=== PATIENT | male | born 1945 | race Caucasian/White ===

== ENCOUNTER 2021-05-09 00:09 | Day surgery (SDC) | payer OTHER, SELFPAY ==
[2021-04-30 13:55] VITALS: BMI 34.8
[2021-05-09 06:26] VITALS: BP 145/88; PULSE 66; RESP 18; TEMP 36.6; O2SAT 97; BMI 35.2
[2021-05-09] MEDS: LACTATED RINGERS 1,000 ML 150 ML IV CONT (06:38)
[2021-05-09 07:01] LABS: Glucose Point of Care 109 mg/dl (65-105)
--- NOTE | 2021-05-09 07:12 | WPDANESEPPF ---
Anes - Initial Pre Proc Eval Procedure: Operation Date: 05/09/21 07:30 Proposed Procedures p Screening Colonoscopy - Todd Jordan MD Date/Time: 05/09/21 07:12 Surgeon: Todd Jordan MD Pre Op Diagnosis: hx of colon polyps Patient Data Age: 76 Gender: M Height: 1.88 m Weight: 124.4 kg Last Vital Signs Temp 97.8 F 05/09/21 06:26 Pulse 66 05/09/21 06:26 Resp 18 05/09/21 06:26 BP 145/88 H 05/09/21 06:26 Pulse Ox 97 05/09/21 06:26 Allergies Allergy/AdvReac Type Severity Reaction Status Date / Time No Known Allergies Allergy Verified 05/09/21 06:24 Home Medications Medication Instructions Recorded Confirmed Type aspirin 325 mg tablet 325 mg PO DAILY 12/04/20 04/30/21 History carvedilol 12.5 mg tablet 12.5 mg PO Q12H 12/04/20 04/30/21 History furosemide 20 mg tablet 30 mg PO BID tablet 12/04/20 04/30/21 History amlodipine 10 mg tablet 10 mg PO DAILY #90 tablet 01/04/21 04/30/21 Rx metformin 1,000 mg tablet 1,000 mg PO DAILY #90 tablet 02/22/21 04/30/21 Rx allopurinol PO DAILY 04/30/21 History atorvastatin 80 mg PO DAILY 04/30/21 04/30/21 History donepezil [Aricept] 10 mg PO .at bedtime 04/30/21 04/30/21 History losartan [Cozaar] 100 mg PO DAILY 04/30/21 04/30/21 History Laboratory Tests 05/09/21 06:59 POC Capillary Glucose 109 mg/dl H mg/dl (65-105) Patient hx anesthesia problems: none Family hx anesthesia problems: none PMFSH Past Medical History Medical History Influenza vaccine administered Influenza vaccine was given at [facility] on 05/05/2019 in the L delt. Lot# [id number] Exp#01/28/20 Type 2 diabetes mellitus with complications Surgical History Surgical History (Updated 12/04/20 @ 12:24 by Kajal Nobles MA) History of heart artery stent Hx of tonsillectomy Family History Family History Father Hypertension, Onset Age: 79 Family history of coronary artery disease Family history of heart disease in male family member before age 55, Onset Age: 79 Patient's father is , Onset Age: 79 Mother Family history of malignant neoplasm of breast in first degree relative Patient's mother is , Onset Age: 88 Social History Social History (Updated 12/04/20 @ 12:26 by Kajal Nobles MA) Smoking status: Never smoker Tobacco type: cigarettes Second hand tobacco smoke exposure: No Smoking end date: 02/14/85 Alcohol intake: current Drinks per week: 6 Alcohol use details: social drinker Substance use type: does not use Living arrangements: alone Spiritual care concerns: No Anes - Eval Final PreProcedure Day of Procedure 05/09/21 07:12 Patient weight: obese Heart: regular rate and rhythm Lungs: clear to auscultation Airway: Mallampati scale class II Neurological: alert and oriented Last oral intake: >/= 8 hours ASA classification: III Emergent: no Anesthetic plan: proceed Anesthesia type and monitoring: general GIVS and standard monitoring Informed Consent: The patient's anesthetic plan and its attendant risks and benefits were discussed with the patient/family/POA. Questions were solicited and answers provided to the satisfaction of the patient/family/POA.
--- NOTE | 2021-05-09 07:25 | WPDGICN ---
Assessment and Plan Assessment and plan (1) History of colon polyps: Code(s): Z86.010 - Personal history of colonic polyps Status: Acute Assessment and Plan: Patient has a history of adenomatous colon polyps removed from the colon 2016. Plan is for surveillance colonoscopy now, Further recommendations may be given after endoscopy. GI Consult Note Consult date/time: 05/09/21 07:25 HPI: Jm Pike is a 76 year old male Presents for screening colonoscopy. Patient has a history of multiple colon polyps removed from the colon by endoscopy in 2017. Patient presents today for follow-up examination. Patient's current weight appetite bowel movements are normal. He denies abdominal pain. He has had no bleeding. Family history is noncontributory. Review of Systems Review of Systems: All systems reviewed & are unremarkable except as noted in HPI and below PMFSH Past Medical History Medical History (Updated 05/09/21 @ 07:26 by Todd Jordan MD) Influenza vaccine administered Influenza vaccine was given at [facility] on 05/05/2019 in the L delt. Lot# [id number] Exp#01/28/20 Type 2 diabetes mellitus with complications Surgical History Surgical History (Updated 12/04/20 @ 12:24 by Kajal Nobles MA) History of heart artery stent Hx of tonsillectomy Family History Family History Father Hypertension, Onset Age: 79 Family history of coronary artery disease Family history of heart disease in male family member before age 55, Onset Age: 79 Patient's father is , Onset Age: 79 Mother Family history of malignant neoplasm of breast in first degree relative Patient's mother is , Onset Age: 88 Social History Social History (Updated 12/04/20 @ 12:26 by Kajal Nobles MA) Smoking status: Never smoker Tobacco type: cigarettes Second hand tobacco smoke exposure: No Smoking end date: 02/14/85 Alcohol intake: current Drinks per week: 6 Alcohol use details: social drinker Substance use type: does not use Living arrangements: alone Spiritual care concerns: No Meds Home Medications and Allergies Home Medications Medication Instructions Recorded Confirmed Type aspirin 325 mg tablet 325 mg PO DAILY 12/04/20 04/30/21 History carvedilol 12.5 mg tablet 12.5 mg PO Q12H 12/04/20 04/30/21 History furosemide 20 mg tablet 30 mg PO BID tablet 12/04/20 04/30/21 History amlodipine 10 mg tablet 10 mg PO DAILY #90 tablet 01/04/21 04/30/21 Rx metformin 1,000 mg tablet 1,000 mg PO DAILY #90 tablet 02/22/21 04/30/21 Rx allopurinol PO DAILY 04/30/21 History atorvastatin 80 mg PO DAILY 04/30/21 04/30/21 History donepezil [Aricept] 10 mg PO .at bedtime 04/30/21 04/30/21 History losartan [Cozaar] 100 mg PO DAILY 04/30/21 04/30/21 History Allergies Allergy/AdvReac Type Severity Reaction Status Date / Time No Known Allergies Allergy Verified 05/09/21 06:24 Vital Signs Vital Signs - 24 hr 05/09/21 06:26 Temperature 97.8 F Pulse Rate 66 Respiratory Rate 18 Blood Pressure 145/88 H Pulse Oximetry 97 Exam Narrative: Physical exam reveals patient be alert. Vital signs stable. HEENT exam is unremarkable. Patient is anicteric. Lungs are clear to auscultation and percussion. Heart is without murmur or extra sounds. Abdominal exam bowel sounds are present soft nontender with no organomegaly. Digital external rectal exam is normal.
[2021-05-09 07:53] VITALS: BP 115/65; PULSE 55; RESP 22; O2SAT 97
[2021-05-09 07:58] VITALS: BP 123/65; PULSE 57; RESP 22; O2SAT 96
[2021-05-09 08:08] VITALS: BP 121/61; PULSE 52; RESP 22; O2SAT 97
== END 2021-05-09 08:32 | disposition home or self-care (01) ==
PROVIDERS: PCP Internal Medicine; Visit Provider Internal Medicine Gastroenterology
PROC: 0DJD8ZZ Inspection of Lower Intestinal Tract, Via Natural or Artificial Opening Endoscopic (ICD-10-PCS; CPT 45378; principal; 2021-05-09 07:30)
DX: Z12.11 Encounter for screening for malignant neoplasm of colon (principal); D12.5 Benign neoplasm of sigmoid colon; K63.5 Polyp of colon; K57.30 Diverticulosis of large intestine without perforation or abscess without bleeding; K64.8 Other hemorrhoids; E11.9 Type 2 diabetes mellitus without complications; Z95.5 Presence of coronary angioplasty implant and graft; Z79.84 Long term (current) use of oral hypoglycemic drugs; Z79.82 Long term (current) use of aspirin; E66.9 Obesity, unspecified; Z68.35 Body mass index [BMI] 35.0-35.9, adult
CPT/HCPCS: 45385; 82948; 88305; J2704; J7120

== ENCOUNTER 2022-08-25 09:11 | Emergency (ER) | payer OTHER, SELFPAY ==
[2022-08-25] VITALS (26 sets, daily range): BP systolic 111–150; BP diastolic 58–94; PULSE 63–95; RESP 14–22; TEMP 36.4; O2SAT 90–100
--- NOTE | ~2022-08-25 | CT_ITS ---
EXAMINATION: CT abdomen pelvis w con INDICATION: Hematuria and abdominal pain TECHNIQUE: Computed tomographic images of the abdomen and pelvis were obtained after the administrati on of 100 cc of Omnipaque 350 intravenous contrast. The dose-length product (DLP) was 1505.50 mGy-cm. Automated exposure control and iterative reconstruction technique were employed. COMPARISON: None available FINDINGS: Minimal dependent atelectasis is present in the lung bases. The heart size is normal. The l iver, spleen, pancreas, gallbladder, and right adrenal gland are normal. There is a 5 mm mass of the left adrenal gland containing macroscopic fat, consistent with a myelolipoma. There are multiple nono bstructing stones of the left kidney which measure up to 10 mm. Cysts of the kidneys measure up to 3. 2 cm on the left. There are multiple nonobstructing stones of the right kidney which measure up to 3 mm. No pathologically enlarged abdominal or pelvic lymph nodes are identified. There is no free intra peritoneal gas or evidence of bowel obstruction. There is dissection of the aorta which appears to or iginate at a saccular aneurysm of the mid descending thoracic aorta and continues into the left commo n iliac artery. The abdominal aorta measures up to 3.1 cm in maximum dimension. 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 Colonic diverticulosis is present withou t evidence of diverticulitis. The appendix is normal. There is severe lumbar spondylosis. IMPRESSION: 1. 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 Vascular surgical evaluation is recommended. These findings and recommendations we re discussed with Dr. Paramjit Perez DO in the Emergency Department at 1108 hours on 08/25/2022. 2. Bilateral nonobstructing nephrolithiasis. Reviewed, dictated and finalized at location B. E [employer]ER[employer] DIRECTOR IMPRESSION: 1. 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 Vascular surgical evaluation is recomm ended. These findings and recommendations were discussed with Dr. Paramjit andrade DO in the Emergency Department at 1108 hours on 08/25/2022. 2. Bilateral nonobstructing nephrolithiasis.
--- NOTE | 2022-08-25 09:40 | ED.GENADULT ---
HPI - General Adult General Chief complaint: Urogenital-Male Stated complaint: hematuria, jaundiced Time Seen by Provider: 08/25/22 09:15 Source: RN notes reviewed History of Present Illness HPI narrative: Patient presents emergency department from home for blood in urine. Patient states he began to notice blood in his urine approximately 3 days ago. States that the symptoms or not improving he called his son today and when the son arrived the son noted that he was yellow in color. Patient states he had not noticed his skin color change and son states he last saw him a week ago. Patient denies any pain with the symptoms he denies having fevers or chills chest pain but no shortness of breath at rest abdominal pain nausea vomiting diarrhea states he does drink socially which is approximately once per week but does not drink on a regular basis states he is on a full aspirin daily his only complaint is that he has been feeling mildly short of breath with exertion Related Data Home Medications Medication Instructions Recorded Confirmed aspirin 325 mg tablet 325 mg PO DAILY 12/04/20 06/18/22 furosemide 20 mg tablet 30 mg PO BID 12/04/20 06/18/22 carvedilol 25 mg tablet 25 mg PO BID 06/06/21 06/18/22 ibuprofen 200 mg tablet 200 mg PO BID PRN 06/18/22 06/18/22 Allergies Allergy/AdvReac Type Severity Reaction Status Date / Time No Known Allergies Allergy Verified 08/25/22 09:30 Review of Systems Review of Systems: Gen.: Denies fevers or chills Eyes: Denies eye pain or visual change ENT: Denies congestion Respiratory: Reports shortness of breath with exertion CV: Denies chest pain GI: Denies abdominal pain nausea, emesis or diarrhea reports hematuria Musculoskeletal: Denies back pain or muscle pain Neuro: Denies numbness, tingling, weakness or focal weakness Skin: Denies rash Except as documented, all other systems reviewed and negative PMFSH Past Medical History Medical History Influenza vaccine administered Influenza vaccine was given at [facility] on 05/05/2019 in the L delt. Lot# [id number] Exp#01/28/20 Type 2 diabetes mellitus with complications Surgical History Surgical History (Updated 06/18/22 @ 09:29 by Paul Orourke APRN) History of heart artery stent Hx of tonsillectomy Family History Family History Father Hypertension, Onset Age: 79 Family history of coronary artery disease Family history of heart disease in male family member before age 55, Onset Age: 79 Patient's father is , Onset Age: 79 Mother Family history of malignant neoplasm of breast in first degree relative Patient's mother is , Onset Age: 88 Social History Social History Smoking status: Former smoker Tobacco type: cigarettes Second hand tobacco smoke exposure: No Smoking end date: 02/14/85 Alcohol intake: current Drinks per week: 6 Alcohol use details: social drinker Substance use: never Substance use type: does not use Lack of Transportation: No Lack of Food: Never True Current Housing: I Have Housing Concerned About Future Housing: No Difficulty Paying Gas/Electric Bills: No Difficulty Paying for Meds: No Currently Unemployed: No Education: Bachelor's Degree Difficulty w/ Childcare or Family Care: No Spiritual care concerns: No Exam Narrative: APPEARANCE: No acute distress, nontoxic, resting in bed EYES: EOMI HEENT: Normocephalic, atraumatic, OMM RESPIRATORY: No respiratory distress Clear to auscultation bilaterally with no rhonchi wheezing or rales. CARDIOVASCULAR: Regular rate and rhythm without murmurs rubs or gallops. ABDOMINAL: Soft, nontender, nondistended, no rebound or guarding Rectal: No hemorrhoids or fissures small amount of brown stool that is Hemoccult negative
[2022-08-25 09:42] LABS: Basophils Absolute Auto 0.1 K/mm3 (0.0-0.1); Basophils Percent Auto 0.6 % (0.2-1.2); Eosinophils Absolute Auto 0.1 K/mm3 (0-0.3); Eosinophils Percent Auto 0.5 % (0-4.4); Immature Granulocyte Absolute 0.14 K/mm3 (0.00-0.031); Immature Granulocyte Percent A 1.3 % (0-0.5); Lymphocytes Absolute Auto 0.61 K/mm3 (0.9-3.2); Lymphocytes Percent Auto 5.6 % (18.3-44.2); Mean Corpuscular HGB Conc 32.3 g/dl (32-36); Mean Corpuscular Hemoglobin 31.9 pg (26-34); Mean Corpuscular Volume 98.8 fl (80-100); Mean Platelet Volume 9.5 fl (7.4-10.4); Monocytes Absolute Auto 0.3 K/mm3 (0.1-0.6); Monocytes Percent Auto 2.5 % (2.6-8.5); Neutrophils Absolute Auto 9.7 K/mm3 (1.3-6.7); Neutrophils Percent Auto 89.5 % (45.5-73.1); Platelet Count Result 240 k/mm3 (150-375); Red Blood Count 1.63 M/mm3 (4.6-6.20); Red Cell Distribution Width 18.6 % (11.5-14.5); White Blood Count 10.8 K/mm3 (4.5-10.0)
[2022-08-25 09:47] LABS: Hematocrit 16.1 % (42.0-52.0); Hemoglobin 5.2 g/dL (14.0-18.0)
[2022-08-25 09:51] LABS: Lipase 222 U/L (23-300)
[2022-08-25 09:52] LABS: Alanine Aminotransferase 34 U/L (6-50); Albumin Level 4.5 g/dL (3.5-5.1); Alkaline Phosphatase 102 U/L (38-126); Anion Gap 9 mmol/L (8-16); Aspartate Amino Transferase 103 U/L (17-59); Bilirubin Direct 0.1 mg/dL (0-0.3); Bilirubin,Total 14.4 mg/dL (0.2-1.3); Blood Urea Nitrogen 42 mg/dL (9-20); Calcium 9.4 mg/dL (8.4-10.2); Carbon Dioxide 26 mmol/L (22-30); Chloride 105 mmol/L (98-107); Estimated CRCL calculation 81 ml/min; Estimated Glomerular Filt Rate > 60; Glucose 224 mg/dL (65-110); Potassium 4.1 mmol/L (3.4-5.0)
[2022-08-25 09:55] LABS: INR 1.2; Prothrombin Time 14.5 Seconds (11.1-14.7)
[2022-08-25 09:56] LABS: Partial Thromboplastin Time 24.6 SECONDS (22.3-36.8)
[2022-08-25 10:04] LABS: Sodium 140 mmol/L (137-145)
[2022-08-25 10:18] LABS: Add Urine Microscopic? YES; Appearance Urine Clear (Clear); Bilirubin Urine 1+ (Negative); Blood Urine 3+ (Negative); Glucose Urine UA 2+ mg/dL (Negative); Ketones Urine Negative (Negative); Leukocyte Esterase Ur Negative LEU/UL (Negative); Nitrate Urine Positive (Negative); Protein Urine 2+ mg/dL (Negative); Specific Grav Ur 1.015 (1.001-1.035)
[2022-08-25 10:25] LABS: Color Urine Amber (Yellow)
[2022-08-25 10:51] LABS: Influenza A QL RT-PCR Negative (Negative); Influenza B QL RT-PCR Negative (Negative); SARS-CoV-2 RNA PCR Negative
[2022-08-25 11:04] LABS: Bacteria Urine Trace /hpf; Mucus Urine Rare /lpf
[2022-08-25] MEDS: methylPREDNISolone SOD SUCC 125 MG VIAL IV PUSH (11:50)
--- NOTE | 2022-08-25 14:22 | PC.NURSE ---
Pt is accepted at [facility], no bed available at this time. Dien from [facility] transfer cencer
--- NOTE | 2022-08-25 14:24 | PC.NURSE ---
Pt is accepted at [facility], [place], no beds available at this time. Dien from [facility] transfer center will call us back if bed is available.
== END 2022-08-25 18:20 | disposition short-term general hospital (02) ==
PROVIDERS: Emergency Provider Emergency Medicine
DX: D58.9 Hereditary hemolytic anemia, unspecified (principal); I71.012 Dissection of descending thoracic aorta; Z20.822 Contact with and (suspected) exposure to COVID-19; E11.9 Type 2 diabetes mellitus without complications; Z95.5 Presence of coronary angioplasty implant and graft; Z87.891 Personal history of nicotine dependence; Z79.84 Long term (current) use of oral hypoglycemic drugs; Z79.82 Long term (current) use of aspirin; N20.0 Calculus of kidney
CPT/HCPCS: 36415; 74177; 80048; 80076; 81001; 81479; 83690; 85025; 85610; 85730; 86850; 86860; 86870; 86880; 86900; 86901; 86902; 86971; 86978; 87086; 87636; 96365; 96367; 96375; 99285; J0131; J0696; J2930; Q9967

== ENCOUNTER 2022-12-28 10:46 | Emergency (ER) | payer OTHER, SELFPAY ==
--- NOTE | ~2022-12-28 | XR_ITS ---
XR chest 1V portable 12/28/2022 14:28 Indication: Shortness of breath Procedure: AP portable chest Comparison: No prior studies for comparison. Findings: Shallow inspiration. Left basilar atelectasis. No focal pneumonia, edema, pleural effusion or pneumothorax. No acute osseous abnormality. Impression: 1: Left basilar atelectasis. Reviewed, dictated and finalized at location A. Impression: 1: Left basilar atelectasis.
[2022-12-28 11:11] VITALS: BP 101/64; PULSE 77; RESP 16; TEMP 36.6; O2SAT 97
--- NOTE | 2022-12-28 11:14 | ECG_ITS ---
Measurements Intervals [place] Rate: 79 P: 109 CO: 159 QRS: -8 QRSD: 120 T: 9 QT: 392 QTc: 452 Interpretive Statements SINUS RHYTHM ATRIAL COUPLET AND ATRIAL PREMATURE COMPLEXES LEFT VENTRICULAR HYPERTROPHY MINIMAL Q WAVES- HIGH LATERAL LEADS BORDERLINE T WAVE ABNORMALITY- INFERIOR LEADS BASELINE ARTIFACT- I, III, AVR, AVL, AVF, V4, V6 BORDERLINE ECG NO PREVIOUS ECG AVAILABLE FOR COMPARISON Electronically Signed On 12-28-2022 13:34:06 CDT by Hieu Catherine D.O.
[2022-12-28 11:38] LABS: Hemoglobin 13.5 g/dL (14.0-18.0); Mean Corpuscular HGB Conc 32.9 g/dl (32-36); Mean Corpuscular Hemoglobin 30.8 pg (26-34); Mean Corpuscular Volume 93.6 fl (80-100); Mean Platelet Volume 9.6 fl (7.4-10.4); Platelet Count Result 140 k/mm3 (150-375); Red Blood Count 4.38 M/mm3 (4.6-6.20); Red Cell Distribution Width 14.7 % (11.5-14.5); White Blood Count 4.2 K/mm3 (4.5-10.0)
[2022-12-28 11:48] LABS: Alanine Aminotransferase 34 U/L (6-50); Albumin Level 3.3 g/dL (3.5-5.1); Alkaline Phosphatase 89 U/L (38-126); Anion Gap 5 mmol/L (8-16); Aspartate Amino Transferase 30 U/L (17-59); Bilirubin,Total 1.4 mg/dL (0.2-1.3); Blood Urea Nitrogen 20 mg/dL (9-20); Calcium 8.5 mg/dL (8.4-10.2); Carbon Dioxide 31 mmol/L (22-30); Chloride 104 mmol/L (98-107); Estimated CRCL calculation 87 ml/min; Estimated Glomerular Filt Rate > 60; Glucose 208 mg/dL (65-110); Potassium 3.7 mmol/L (3.4-5.0); Sodium 140 mmol/L (137-145)
[2022-12-28 12:10] LABS: Band Neutrophils Percent 12 % (0-6); Lymphocytes Absolute Manual 0.42 K/mm3 (1.1-4.5); Metamyelocytes Percent 1 %; Monocytes Percent Manual 12 % (3-9); Neutrophils Absolute Manual 3.23 K/mm3 (1.3-6.7); Neutrophils Percent Manual 65 % (46-73); Platelet Estimate Adequate (Adequate); Total Cells Counted 100
[2022-12-28 12:11] LABS: Schistocytes None Seen (NORMAL)
[2022-12-28 12:13] LABS: Atypical Lymphocytes Present
--- NOTE | 2022-12-28 13:05 | ED.GENADULT ---
HPI - General Adult General Chief complaint: Weakness Stated complaint: WEAKNESS, HX ANEMIA Time Seen by Provider: 12/28/22 12:26 History of Present Illness HPI narrative: 77-year-old male presented to the emergency department for evaluation of increased weakness and shortness of breath. 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 Patient was initially concerned that he may have worsening anemia. Patient was also told by his primary care physician that he may have a urinary tract infection. Patient reports that he has had weight loss the onset in August. Patient has been on steroids for this. Patient denies any current chest pain denies any loss of blood in his stool. Patient does have current issues with urinary retention. Patient states that he has not been as active as he initially was after being discharged from the hospital. Related Data Home Medications Medication Instructions Recorded Confirmed carvedilol 25 mg tablet 25 mg PO BID 06/06/21 11/25/22 furosemide 20 mg tablet 20 mg PO BID 09/16/22 11/25/22 pantoprazole 40 mg tablet,delayed 40 mg PO QAM 09/16/22 11/25/22 release allopurinol 300 mg tablet 300 mg PO DAILY 11/11/22 11/25/22 folic acid 800 mcg tablet 0.8 mg PO DAILY 11/25/22 11/25/22 prednisone 20 mg tablet 50 mg PO DAILY 11/25/22 11/25/22 Allergies Allergy/AdvReac Type Severity Reaction Status Date / Time No Known Allergies Allergy Verified 12/25/22 09:57 Review of Systems Review of Systems: All systems reviewed & are unremarkable except as noted in HPI and below PMFSH Past Medical History Medical History Atherosclerosis of coronary artery Autoimmune hemolytic anemia CVA (cerebrovascular accident) Essential hypertension Gout, unspecified Influenza vaccine administered Influenza vaccine was given at [facility] on 05/05/2019 in the L delt. Lot# [id number] Exp#01/28/20 Type 2 diabetes mellitus with complications Type 2 diabetes mellitus without complications Surgical History Surgical History History of heart artery stent Hx of tonsillectomy Family History Family History Father Hypertension, Onset Age: 79 Family history of coronary artery disease Family history of heart disease in male family member before age 55, Onset Age: 79 Patient's father is , Onset Age: 79 Mother Family history of malignant neoplasm of breast in first degree relative Patient's mother is , Onset Age: 88 Social History Social History Smoking status: Never smoker Alcohol intake: current Drinks per week: 6 Alcohol use details: social drinker Substance use: never Substance use type: does not use Lack of Transportation: No Lack of Food: Never True Current Housing: I Have Housing Concerned About Future Housing: No Difficulty Paying Gas/Electric Bills: No Difficulty Paying for Meds: No Currently Unemployed: No Education: Bachelor's Degree Difficulty w/ Childcare or Family Care: No Living arrangements: alone Spiritual care concerns: No Exam Narrative: APPEARANCE: Well appearing, no pain, no distress, well-nourished. HEAD: normocephalic, atraumatic. EYES: PERRLA/EOMI, conjunctivae clear. NOSE: Normal no drainage EARS:TMS clear with good light reflex. THROAT: Pharynx clear, no exudate. NECK: Supple. No adenopathy, no masses. RESPIRATORY: Airway patent, respirations nonlabored. Clear to auscultation bilaterally, no rales, rhonchi, wheezing. CARDIOVASCULAR: Regular rate and rhythm without murmurs rubs or gallops. ABDOMINAL: Soft, nontender, nondistended, normal bowel sounds MUSCULOSKELETAL: Moves all extremities. Strength/ROM intact, No edema, No calf tendernes
[2022-12-28 13:30] VITALS: BP 110/69; PULSE 72; RESP 19; O2SAT 97
[2022-12-28 13:50] LABS: Influenza A QL RT-PCR Negative (Negative); Influenza B QL RT-PCR Negative (Negative); RSV RNA, RT-PCR Negative (Negative); SARS-CoV-2 RNA PCR Negative (Negative)
[2022-12-28 13:59] LABS: Appearance Urine Cloudy (Clear); Bacteria Urine None Seen /hpf; Bilirubin Urine Negative (Negative); Blood Urine 1+ (Negative); Color Urine Dark Yellow (Yellow); Glucose Urine UA Trace mg/dL (Negative); Ketones Urine Trace mg/dL (Negative); Leukocyte Esterase Ur Trace LEU/UL (Negative); Mucus Urine Present /lpf; Nitrate Urine Negative (Negative); Protein Urine 1+ mg/dL (Negative); Specific Grav Ur 1.025 (1.001-1.035); Squamous Epithelial Cell Urine Occasional /hpf (Few); pH Urine 5.5 (5.0-9.0)
[2022-12-28 14:01] LABS: Add Urine Microscopic? YES
[2022-12-28 15:09] VITALS: BP 139/86; PULSE 67; RESP 16; O2SAT 97
== END 2022-12-28 15:10 | disposition home or self-care (01) ==
PROVIDERS: Emergency Provider Emergency Medicine; PCP Family Medicine
DX: R53.1 Weakness (principal); Z20.822 Contact with and (suspected) exposure to COVID-19; I25.10 Atherosclerotic heart disease of native coronary artery without angina pectoris; I10 Essential (primary) hypertension; E11.9 Type 2 diabetes mellitus without complications; D59.10 Autoimmune hemolytic anemia, unspecified; M10.9 Gout, unspecified; Z86.73 Personal history of transient ischemic attack (TIA), and cerebral infarction without residual deficits; Z95.5 Presence of coronary angioplasty implant and graft; Z79.85 Long-term (current) use of injectable non-insulin antidiabetic drugs; Z79.84 Long term (current) use of oral hypoglycemic drugs
CPT/HCPCS: 36415; 71045; 80053; 81001; 85025; 87086; 87637; 93005; 99283